=== PATIENT | female | born 1995 | race Caucasian/White ===

== ENCOUNTER 2018-08-22 05:41 | Inpatient (IN) | payer MEDICAID ==
[2018-08-22] MEDS ORDERED: LACTATED RINGER'S 1,000 ML IV (06:04)
[2018-08-22] MEDS: LACTATED RINGER'S 1,000 ML IV ×2 (06:22→07:04)
[2018-08-22] MEDS: AMPICILLIN 2 GM/NS (PMX) 100 ML IV (06:23)
[2018-08-22] MEDS: MAGNESIUM SULFATE 4 GM/100 ML 100 ML IVPB (06:25)
[2018-08-22 06:27] LABS: ADD MAN DIFF? NO
[2018-08-22] MEDS: LABETALOL HCL 20MG INJ IV ×2 (06:27→16:10)
[2018-08-22] MEDS ORDERED: IBUPROFEN 600 MG TAB PO (06:30)
[2018-08-22] MEDS ORDERED: METHYLERGONOVINE 0.2 MG INJ IM (06:30)
[2018-08-22] MEDS ORDERED: MISOPROSTOL 200 MCG TAB PR ×2 (06:30→07:30)
[2018-08-22] MEDS ORDERED: CARBOPROST 250 MCG INJ IM ×2 (06:30→07:30)
[2018-08-22] MEDS ORDERED: BUTORPHANOL 2 MG INJ IV (06:30)
[2018-08-22] MEDS ORDERED: CA GLUCONATE (GM) 10% 10ML INJ IV ×2 (06:30→07:30)
[2018-08-22] MEDS ORDERED: OXYTOCIN 30 UNITS/LR 500 ML IV ×2 (06:30→07:30)
[2018-08-22] MEDS ORDERED: BUTORPHANOL 1 MG INJ IV (06:30)
[2018-08-22 06:31] LABS: WHITE BLOOD COUNT 10.2 10^3/ul (4.8-10.8)
[2018-08-22 06:31] LABS: BASOPHILS % 0.3 % (0.0-2.0); EOSINOPHILS # 0.3 10^3/ul (0.0-0.5); EOSINOPHILS % 3.3 % (0.0-7.0); HEMATOCRIT 37.4 % (37.0-47.0); HEMOGLOBIN 11.6 g/dl (12.0-16.0); LYMPHOCYTES % 29.2 % (15.0-51.0); MEAN CORPUSCULAR HEMOGLOBIN 24.9 pg (29.0-33.0); MEAN CORPUSCULAR VOLUME 80.3 fl (82.0-101.0); MEAN PLATELET VOLUME 9.6 fl (7.4-10.4); MONOCYTE # 0.8 10^3/ul (0.3-0.9); MONOCYTES % 8.1 % (0.0-11.0); NEUTROPHILS % 58.5 % (39.0-77.0); PLATELET COUNT 371 10^3/UL (140-415); RED BLOOD COUNT 4.66 10^6/ul (4.20-5.40)
[2018-08-22] MEDS: OXYTOCIN 30 UNITS/LR 500 ML IV ×3 (06:42→14:53)
[2018-08-22] MEDS: MAGNESIUM SULFATE 20 GM/500 ML 500 ML IV ×3 (06:44→20:31)
[2018-08-22 06:54] LABS: INR 0.87; PROTIME 11.9 Sec (11.9-14.9); PT RATIO 0.9
[2018-08-22] MEDS: LIDOCAINE 1% (MPF) 30 ML INJ INJ (06:56)
[2018-08-22 06:57] LABS: ALANINE AMINOTRANSFERASE 20 IU/L (13-69); ALBUMIN 3.6 g/dl (3.3-4.9); ALBUMIN/GLOBULIN RATIO 0.97; ALKALINE PHOSPHATASE 199 IU/L (42-121); ANION GAP 10 (5-13); ASPARTATE AMINO TRANSFERASE 24 IU/L (15-46); BILIRUBIN,INDIRECT 0.1 mg/dl (0-1.1); BILIRUBIN,TOTAL 0.1 mg/dl (0.2-1.3); BLOOD UREA NITROGEN 7 mg/dl (7-20); CALCIUM 9.3 mg/dl (8.4-10.2); CARBON DIOXIDE 21 mmol/L (21-31); CHLORIDE 108 mmol/L (97-110); CREATININE 0.37 mg/dl (0.44-1.00); Estimated GFR > 60 mL/min (>60); GLUCOSE 85 mg/dl (70-220); SODIUM 139 mmol/L (135-144); TOTAL PROTEIN 7.3 g/dl (6.1-8.1); URIC ACID 4.7 mg/dl (3.1-7.9)
[2018-08-22 07:25] LABS: HEPATITIS B SURFACE ANTIGEN NEGATIVE (NEGATIVE)
[2018-08-22] MEDS ORDERED: ONDANSETRON 4 MG INJ IV (07:30)
[2018-08-22] MEDS ORDERED: NACL 0.9% 3 ML SYG IV (07:30)
[2018-08-22] MEDS ORDERED: ZOLPIDEM 5 MG TAB PO (07:30)
[2018-08-22] MEDS ORDERED: LABETALOL HCL 20MG INJ IV ×2 (07:30)
[2018-08-22] MEDS ORDERED: LANOLIN HPA 1 PKT TOP (07:30)
[2018-08-22] MEDS ORDERED: DIPHENHYDRAMINE 25 MG CAP PO (07:30)
[2018-08-22] MEDS ORDERED: WITCH HAZEL/GLYCERIN PAD PR (07:30)
[2018-08-22] MEDS: NIFEdipine 10 MG CAP PO ×3 (08:01→21:14)
[2018-08-22] MEDS ORDERED: AMPICILLIN 1 GM/NS (PMX) 50 ML IV (10:30)
[2018-08-22 12:11] LABS: MAGNESIUM 4.3 mg/dl (1.7-2.5)
[2018-08-22] MEDS: SENNA/DOCUSATE NA (8.6MG/50MG) TAB PO ×2 (16:10→20:30)
[2018-08-22 19:32] LABS: MAGNESIUM 4.6 mg/dl (1.7-2.5)
[2018-08-22 21:21] LABS: RAPID PLASMA REAGIN NONREACTIVE (NR)
[2018-08-22] MEDS: HYDROCODONE/APAP (5/325) TAB PO (22:21)
[2018-08-23] MEDS: LACTATED RINGER'S 1,000 ML IV (00:02)
[2018-08-23 01:13] LABS: MAGNESIUM 4.9 mg/dl (1.7-2.5)
[2018-08-23] MEDS: NIFEdipine 10 MG CAP PO ×4 (03:00→21:22)
[2018-08-23] MEDS: MAGNESIUM SULFATE 20 GM/500 ML 500 ML IV (03:04)
[2018-08-23 08:36] LABS: ADD MAN DIFF? NO
[2018-08-23 08:39] LABS: BASOPHILS % 0.3 % (0.0-2.0); EOSINOPHILS # 0.3 10^3/ul (0.0-0.5); EOSINOPHILS % 2.8 % (0.0-7.0); HEMOGLOBIN 10.7 g/dl (12.0-16.0); LYMPHOCYTES # 2.1 10^3/ul (0.8-2.9); LYMPHOCYTES % 19.9 % (15.0-51.0); MEAN CORPUSCULAR HEMOGLOBIN 25.4 pg (29.0-33.0); MEAN CORPUSCULAR HGB CONC 31.5 g/dl (32.0-37.0); MEAN CORPUSCULAR VOLUME 80.8 fl (82.0-101.0); MEAN PLATELET VOLUME 9.6 fl (7.4-10.4); MONOCYTE # 0.8 10^3/ul (0.3-0.9); MONOCYTES % 7.2 % (0.0-11.0); NEUTROPHIL # 7.2 10^3/ul (1.6-7.5); NEUTROPHILS % 69.2 % (39.0-77.0); PLATELET COUNT 341 10^3/UL (140-415); RED BLOOD COUNT 4.21 10^6/ul (4.20-5.40); RED CELL DISTRIBUTION WIDTH 14.3 % (11.5-14.5)
[2018-08-23 08:39] LABS: WHITE BLOOD COUNT 10.4 10^3/ul (4.8-10.8)
[2018-08-23] MEDS: SENNA/DOCUSATE NA (8.6MG/50MG) TAB PO ×2 (09:03→21:22)
[2018-08-23] MEDS ORDERED: VITAMIN A & D 5 GM OINT PACKET TOP (21:46)
[2018-08-24] MEDS: NIFEdipine 10 MG CAP PO ×3 (03:00→15:45)
[2018-08-24] MEDS: VARICELLA VACCINE LIVE/PF 1,350 UNIT/0.5 ML ML SC* (09:00)
[2018-08-24] MEDS: MEASLES,MUMPS,RUBELLA VACCINE INJ SC* (09:00)
[2018-08-24] MEDS: DIPHTH/TET/ACEL PERTUSS (ADULT) 0.5 ML VIAL IM* (09:00)
[2018-08-24] MEDS: SENNA/DOCUSATE NA (8.6MG/50MG) TAB PO (09:15)
== END 2018-08-24 20:00 | disposition home or self-care (01) | DRG 807 ==
LOC: OBT 05:41 → L-D 05:45 → OBT 06:00 → L-D 06:00 → PP1 16:11
PROC: 10E0XZZ Delivery of Products of Conception, External Approach (ICD-10-PCS; principal; 2018-08-22)
PROC: 0HQ9XZZ Repair Perineum Skin, External Approach (ICD-10-PCS; 2018-08-22)
DX: O13.4 Gestational [pregnancy-induced] hypertension without significant proteinuria, complicating childbirth (principal); O70.0 First degree perineal laceration during delivery; Z37.0 Single live birth; Z3A.38 38 weeks gestation of pregnancy
CPT/HCPCS: 80053; 83735; 84560; 85025; 85610; 85730; 86592; 86850; 86900; 86901; 87340; 90716